=== PATIENT | female | born 1935 | race Caucasian/White ===

== ENCOUNTER → 2016-07-13 | Outpatient (CLI) | payer OTHER | LOC: FIMAGING 13:07 | DX: Z12.31 Encounter for screening mammogram for malignant neoplasm of breast (principal) | CPT/HCPCS: G0202 ==

== ENCOUNTER 2016-08-27 14:44 | Observation (INO) | payer OTHER ==
--- NOTE | 2016-08-27 16:02 | EDPHY ---
H & P Stated Complaint: Fall, unknown, no LOC, on Plavix Time Seen by Provider: 08/27/16 15:33 HPI/ROS: CHIEF COMPLAINT: Mechanical fall on Plavix, head trauma HISTORY OF PRESENT ILLNESS: The patient presents to the emergency department with complaints of a forehead hematoma. The patient tripped and fell at her house. She struck her left forehead. The patient denies loss of consciousness. She has a mild headache. She complains of mild left foot pain. The patient denies focal numbness, weakness, neck pain, chest pain, back pain or additional traumatic injury. The patient is on Plavix for prior history of stroke 10 years ago. REVIEW OF SYSTEMS: A comprehensive 10 point review of systems is otherwise negative aside from elements mentioned in the history of present illness. Source: Patient Exam Limitations: No limitations - Personal History Current Tetanus/Diphtheria Vaccine: Yes Current Tetanus Diphtheria and Acellular Pertussis (TDAP): Yes Tetanus Vaccine Date: September 2013 - Medical/Surgical History Hx Asthma: No Hx Chronic Respiratory Disease: No Hx Diabetes: No Hx Cardiac Disease: Yes Hx Renal Disease: No Hx Cirrhosis: No Hx Alcoholism: No Hx HIV/AIDS: No Hx Splenectomy or Spleen Trauma: No Other PMH: medical HTN, depression, anxiety, stroke, TIA hx,. surgery partial paradoidectomy - Social History Smoking Status: Former smoker - Physical Exam Exam: General Appearance: Alert, no distress Head: Large hematoma noted over left forehead Eyes: Pupils equal, round, reactive ENT, Mouth: No hemotympanum, no oral trauma Neck: Nontender, trachea midline Respiratory: No chest wall tender, subcutaneous air, lungs clear bilaterally Cardiovascular: Regular rate and rhythm Abdomen: Abdomen is soft and nontender, pelvis stable Skin: No lacerations, No abrasion Back: No midline T/L/S pain Extremities: Tenderness to palpation left foot Neurological: A&Ox3, normal motor function, normal sensory exam Constitutional: Initial Vital Signs Temperature (C) 36.4 C 08/27/16 15:00 Heart Rate 76 08/27/16 15:00 Respiratory Rate 18 08/27/16 15:00 Blood Pressure 137/62 H 08/27/16 15:00 O2 Sat (%) 93 08/27/16 15:00 O2 Delivery Mode Room Air Allergies/Adverse Reactions: No Known Allergies Allergy (Verified 08/27/16 15:03) Home Medications: Medication Instructions Recorded Aspirin [Aspirin 325 mg (*)] 325 mg PO DAILY 11/12/13 Atorvastatin Calcium [Lipitor 10 10 mg PO HS 11/12/13 mg (*)] Cholecalciferol Vit D3 [Vitamin D3 1,000 units PO DAILY 11/12/13 (*)] Metoprolol Tartrate [Lopressor 25 25 mg PO BID 11/12/13 mg (*)] PARoxetine HCL [Paxil 10mg (*)] 10 mg PO DAILY 11/12/13 PARoxetine HCL [Paxil 20mg (*)] 20 mg PO HS 11/12/13 Clopidogrel Bisulfate [Plavix (*)] 75 mg PO DAILY #30 tab 11/13/13 Zolpidem Tartrate [Ambien 5MG (*)] 5 mg PO HS 08/27/16 Medical Decision Making - Diagnostics Imaging: Imaging Impressions Head CT 08/27/16 15:33 Impression: 1. Stable mild to moderate atrophy. 2. 2 localized foci of subarachnoid hemorrhage over the left frontal lobe. 3. Stable moderate to extensive periventricular white matter disease. Differential diagnosis includes microvascular ischemic disease, post-infectious/ post-inflammatory sequela, atypical demyelinating disease, or migraine-related sequela. Small white matter lacunar infarcts may also have this appearance. 4. Moderate soft tissue swelling over the left orbital region without underlying fracture. These findings discussed by telephone with Dr. Larry Marti at 1604 hrs. Foot X-Ray 08/27/16 16:02 Impression: 1. Bone demineralization. 2. Compared to 05/21/2013, there has been development of avulsion fracture fragments over the dorsal distal talus and the proximal dorsal navicular. 3. Moderate hallux valgus configuration with bunion deformity. 4. Plantar calcaneal enthesophytosis. ED Course/Re-evaluation: The patient presents to the ED after mechanical fall with a large forehead hematoma. Given the fact she is on Plavix a CT scan was ordered which demonstrates a small intraparenchymal/subarachnoid hemorrhage in the left frontal lobe. The patient is noted to be neurologically intact. The patient has no cervical spine tenderness on exam. Consultation was made with Dr. Canales from Neurosurgery who evaluated the patient in the emergency department. He has requested the patient be given a unit of platelets. Consultation was made with Dr. Eric Francis from General surgery. The patient will be admitted to the step-down unit this evening for close neuro checks and repeat CT scan. Patient does have very superficial avulsions noted on her left foot x-ray consistent with a sprain of the foot. The patient can follow up with Orthopedics as an outpatient for any persistent pain in the foot past 7-10 days. Differential Diagnosis: Differential diagnosis considered includes intracranial hemorrhage, skull fracture, cervical spine fracture, foot fracture Critical Care Time: Critical care time exclusive of procedures and exclusive of the PA's time was 35 minutes, performed by myself, Nathanael Marti MD. - Data Points Laboratory Results: Laboratory Results 08/27/16 16:14 08/27/16 16:14 08/27/16 08/27/16 08/27/16 16:14 16:14 16:14 WBC 6.66 10^3/uL 10^3/uL (3.80-9.50) RBC 4.98 10^6/uL 10^6/uL (4.18-5.33) Hgb 15.1 g/dL g/dL (12.6-16.3) Hct 43.6 % % (38.0-47.0) MCV 87.6 fL fL (81.5-99.8) MCH 30.3 pg pg (27.9-34.1) MCHC 34.6 g/dL g/dL (32.4-36.7) RDW 13.3 % % (11.5-15.2) Plt Count 338 10^3/uL 10^3/uL (150-400) MPV 8.3 fL L fL (8.7-11.7) Neut % (Auto) 78.9 % H % (39.3-74.2) Lymph % (Auto) 12.3 % L % (15.0-45.0) Cotton % (Auto) 7.2 % % (4.5-13.0) Eos % (Auto) 0.6 % % (0.6-7.6) Baso % (Auto) 0.5 % % (0.3-1.7) Nucleat RBC Rel Count 0.0 % % (0.0-0.2) Absolute Neuts (auto) 5.26 10^3/uL 10^3/uL (1.70-6.50) Absolute Lymphs (auto) 0.82 10^3/uL L 10^3/uL (1.00-3.00) Absolute Monos (auto) 0.48 10^3/uL 10^3/uL (0.30-0.80) Absolute Eos (auto) 0.04 10^3/uL 10^3/uL (0.03-0.40) Absolute Basos (auto) 0.03 10^3/uL 10^3/uL (0.02-0.10) Absolute Nucleated RBC 0.00 10^3/uL 10^3/uL (0-0.01) Immature Gran % 0.5 % % (0.0-1.1) Immature Gran # 0.03 10^3/uL 10^3/uL (0.00-0.10) PT 14.0 SEC SEC (12.0-15.0) INR 1.09 (0.83-1.16) APTT 29.2 SEC SEC (23.0-38.0) Sodium 139 mEq/L mEq/L (134-144) Potassium 3.9 mEq/L mEq/L (3.5-5.2) Chloride 106 mEq/L mEq/L (97-110) Carbon Dioxide 24 mEq/l mEq/l (22-31) Anion Gap 9 mEq/L mEq/L (8-16) BUN 17 mg/dL mg/dL (7-23) Creatinine 1.3 mg/dL H mg/dL (0.6-1.0) Estimated GFR 40 Glucose 116 mg/dL H mg/dL (70-100) Calcium 9.6 mg/dL mg/dL (8.5-10.4) Departure - Departure Disposition: [facility] Inpatient Acute Clinical Impression: Intracranial hemorrhage, Facial contusion, Sprain of foot, left Condition: Fair
[2016-08-27 16:25] LABS: % IMMATURE GRANULYOCYTES 0.5 % (0.0-1.1); ABSOLUTE IMMATURE GRANULOCYTES 0.03 10^3/uL (0.00-0.10); ADD DIFF? NO; ADD MORPH? NO; ADD SCAN? NO; ATYPICAL LYMPHOCYTE FLAG 0 (0-99); FRAGMENT RBC FLAG 0 (0-99); HEMATOCRIT 43.6 % (38.0-47.0); HEMOGLOBIN 15.1 g/dL (12.6-16.3); LEFT SHIFT FLG 0 (0-99); LIPEMIA HEMOLYSIS FLAG 90 (0-99); MEAN CELL HEMOGLOBIN 30.3 pg (27.9-34.1); MEAN CELL HEMOGLOBIN CONCENTR. 34.6 g/dL (32.4-36.7); MEAN CELL VOLUME 87.6 fL (81.5-99.8); MEAN PLATELET VOLUME 8.3 fL (8.7-11.7); PLATELET CLUMPS FLAG 20 (0-99); PLATELET COUNT 338 10^3/uL (150-400); RED BLOOD CELL COUNT 4.98 10^6/uL (4.18-5.33); RED CELL DISTRIBUTION WIDTH 13.3 % (11.5-15.2)
[2016-08-27 16:40] LABS: ANION GAP 9 mEq/L (8-16); CALCIUM 9.6 mg/dL (8.5-10.4); CARBON DIOXIDE 24 mEq/l (22-31); CHLORIDE 106 mEq/L (97-110); CREATININE 1.3 mg/dL (0.6-1.0); GLOMERULAR FILTRATION RATE 40; GLUCOSE 116 mg/dL (70-100); POTASSIUM 3.9 mEq/L (3.5-5.2); SODIUM 139 mEq/L (134-144)
[2016-08-27] MEDS ORDERED: ACETAMINOPHEN 325 MG TAB PO PRN (16:47)
[2016-08-27] MEDS ORDERED: ONDANSETRON 4 MG/2 ML VIAL IVP PRN (16:47)
[2016-08-27] MEDS ORDERED: ONDANSETRON DISINTEGRATING 4 MG TAB PO PRN (16:47)
[2016-08-27 16:58] LABS: INR 1.09 (0.83-1.16)
[2016-08-27 16:59] LABS: APTT 29.2 SEC (23.0-38.0)
--- NOTE | 2016-08-27 17:21 | GHP ---
[f rep st] HISTORY AND PHYSICAL DATE OF ADMISSION: 08/27/2016 The patient was seen evaluated in [facility] emergency department at approximately 4 :25 p.m. on 08/27/2016. HISTORY OF PRESENT ILLNESS: The patient is a 81-year-old woman with a history of stroke and subsequ ent TIA, who was on aspirin and Plavix. She apparently had a fall when walking up some stairs today . She did not pass out or get dizzy. She apparently just missed a step and tripped. She did not h ave a loss of consciousness. She really did not have any symptoms or major head pain, but was getti ng some swelling above the left eye and, therefore, presented to the emergency department. Upon my evaluation, she really does not have any complaints. She does have some pain in the left ankle as w ell. She denies any neurologic symptoms such as visual problems, speech problems, numbness, weaknes s, neck pain, chest pain, abdominal pain, respiratory distress or any other symptoms. CT of the hea d reveals a tiny 3 mm left frontal hyperdensity in the subdural space, which appears to be a small s ubdural or possibly a cortical contusion. There is no mass effect or shift. REVIEW OF SYSTEMS: A 10-point review of systems is negative, other than described above in the HPI. PAST MEDICAL HISTORY: 1. Cardiac disease. 2. Hypertension. 3. Depression. 4. Anxiety. 5. Stroke. 6. TIA. 7. Parathyroidectomy. FAMILY HISTORY: Positive for vascular disease, but otherwise negative for any neurological problems . SOCIAL HISTORY: The patient is a former smoker. She drinks 2 alcoholic beverages (wine) daily. Yomaira meehan does not use any other drugs. 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 ALLERGIES: No known drug allergies. MEDICATIONS: 1. Aspirin. 2. Atorvastatin. 3. Calcium carbonate. 4. Vitamin D. 5. Metoprolol. 6. Paxil. 7. Zolpidem. 8. Clopidogrel. PHYSICAL EXAMINATION: VITAL SIGNS: Currently, she is afebrile with normal and stable vital signs. The temperature is 36.4, heart rate 76, respiratory rate 18, blood pressure is 137/62, sats are 93% on room air. GENERAL: She is awake, alert and oriented x3. NEUROLOGIC: The pupils are equal, ro und, reactive to light. She does have ecchymosis and swelling over the left eye, but otherwise her vision is intact. Face is symmetric. Tongue is midline. Palate is symmetric. She has full 5/5 st rength in all muscle groups of the upper and lower limbs. There is no pronator drift. Her sensatio n is normal. Her reflexes are normal. She has no dysmetria or dysdiadochokinesia. CHEST: Clear t o auscultation bilaterally. HEART: Regular rate and rhythm. No rubs, murmurs or gallops. ABDOMEN : Soft, nontender, nondistended. Active bowel sounds in all 4 quadrants. IMAGING REVIEW: See HPI. LABORATORY REVIEW: The white count is 6.6, hemoglobin 15.1, hematocrit 43.6, platelet count is 338, 000. PT and INR are pending. Her chemistry is also pending at this time. ASSESSMENT AND PLAN: The patient is a 81-year-old woman who had a mechanical fall today. She has e cchymosis over the left eye and a small what looks like a subdural bleed or cortical contusion in th e left frontal region. There is no mass effect or midline shift or any need for intervention. Give n the fact that she is on aspirin and Plavix, I will plan to repeat her scan tomorrow morning. At t his time, I do not really think, given the small nature of this, that there is any reason to give he r platelets, given the transfusion risk, but we will monitor in the step-down observation status linda rnight. She does tell me that she has a current urinary tract infection, for which she was supposed to start Cipro today; so we will start that here in the hospital. We will plan for discharge tomor row morning, and she will need followup closely with a neurologist to determine if she needs to be b ack on Plavix again and to stratify her stroke risk. I explained all this to her and her . They are in agreement, and we will proceed as described. /[id number]/MODL
--- NOTE | 2016-08-27 18:11 | GHP ---
[f rep st] PREOP HISTORY AND PHYSICAL DATE OF ADMISSION: 08/27/2016 ADMITTING DIAGNOSES: 1. Fall. 2. Left frontal subarachnoid hemorrhage/small cortical contusion. 3. Left ankle sprain HISTORY: She is a 81-year-old, white female, who was going up stairs in clogs. She tripped and fell. It is unclear how many stairs she fell down. She did land on carpet. It is unclear if she hit her head on shelving on one-sided the steps or the post and railing on the other side. immediately found her. She was awake and alert. There does not appear to have been a loss of consciousness but she is amnestic for the event. She feels she just missed a step and tripped. She is on Plavix and aspirin. She suffered a cerebrovascular accident in November of 2008. At that time, a carotid ultrasound showed noncalcified plaque in the left carotid bulb and noncalcified plaque in the left internal carotid artery without evidence of stenosis. She subsequently had a BELIA/stroke in October of 2013. That showed an equivocal narrowing the right vertebral artery at the level of C2. The presence of a dental amalgam may have complicated that reading. She had an MRI which has shown, at that time, an old lacunar infarct in left basal ganglia. In 2013 she had an acute right lacunar infarct in the right internal capsule. Atrophy was noted. She has been on an 81 mg aspirin but recently she feels she was taking a 325 because she purchased the wrong aspirin. She also takes Plavix 75 mg a day. She takes Lipitor, metoprolol and vitamin D. She was started on 1 antibiotic last week. 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 Casanova, and she was changed to Cipro today but has not yet started that. Prior surgeries have included removal of parathyroid adenoma at [facility] 5 years ago. She underwent a breast reduction, again at [facility] in March of 2016. She has had 3 vaginal births and a tonsillectomy. There is no history of rheumatic fever, tuberculosis or hepatitis. She thinks she may have had a transfusion with one of her surgeries but is unclear. SOCIAL HISTORY: She has recently been in [facility] and returned home 1 week ago. She did suffer from traveler's diarrhea. She has had no prior histories of concussions or seizures. She wears lenses for visual correction. . She has cataracts which are not ready for extraction , the right is worse than the left. Her last mammogram was within the year. She has not had a recent Pap smear. There are no limits on her activities. No history of steroid use. She does have hypertension. She does did smoke from ages [age] at 1 pack per month. She does drink 2 glasses of wine, 1 red and 1 white, a day. PHYSICAL EXAMINATION: GENERAL: She is awake, alert. GCS is 15. She is oriented to person, place, and time. She is able to repeat her home telephone number in inverted order. She is able to do serial 7s. Cerebellar function is intact to finger-nose, heel-man testing. There is no focal lateralizing sensory or motor findings. HEENT: Pupils are 3 mm and reactive. She has a contusion over her left eyebrow. There is no Paris sign. No raccoon eyes. She has normal dental occlusion. Cranial nerves are intact. NECK: Nontender. There are no carotid bruits appreciated. No thyroid enlargement. BACK: Unremarkable. CHEST: Stable to AP and lateral compression. CARDIAC: Shows S1 , S2 to be normal. Normal split of S2. I do not appreciate any murmurs, rubs, or gallops. ABDOMEN: Soft, nontender, with normoactive bowel sounds. Spine is palpably normal. Her pelvis is stable to AP and lateral compression. EXTREMITIES: Upper and lower extremities are ranged and found to be unremarkable. She certainly has ecchymosis over the left forefoot. IMAGING: An x-ray of the left forefoot shows tiny avulsion fracture of the dorsal distal talus and the proximal dorsal navicular. LABORATORIES: Unremarkable. Dr. Canales's note indicates that he does not feel that it will be helpful to give her platelets at this time and would rather follow her clinically. She will be admitted to the ICU for observation. /[id number]/MODL MTDD
[2016-08-27] MEDS: CIPROFLOXACIN 500 MG TAB PO SCH (20:41)
[2016-08-27] MEDS: METOPROLOL TARTRATE 25 MG TAB PO SCH (20:41)
[2016-08-27] MEDS ORDERED: ZOLPIDEM TARTRATE 5 MG TAB PO SCH (21:00)
[2016-08-27] MEDS ORDERED: ATORVASTATIN CALCIUM 10 MG TAB PO SCH (21:00)
--- NOTE | 2016-08-28 07:44 | NEUSURGPN ---
Assessment/Plan: 81y/o female with small left frontal SDH -Stable on CT this am -PT/OT -Okay to dispo home per neurosurgery when cleared by trauma. -Hold Plavix until follow up with neurology. Recommend out patient neurology follow up in 1 week -Seen by Dr. Canales and myself. Please notify NS with any change in neuro/motor exam Subjective: Denies any headache, nausea, dizziness. Objective: NAD A&Ox3 left eyelid edema and ecchymosis. PERRLA, CN II-XII grossly intact. MAEx4 5/ and equal BUE and BLE - Physician Patient Seen by : [facility] Physical Exam - Vitals, I&O, Labs I and O 08/27/16 08/28/16 08/29/16 05:59 05:59 05:59 Intake Total 400 Balance 400 Weight 60.4 kg Intake: Oral (ml) 400 Other: Number of Voids Toilet 1 Vital Signs Temp Pulse Resp BP Pulse Ox 36.7 C 68 17 108/64 95 08/28/16 04:00 08/28/16 04:00 08/28/16 04:00 08/28/16 04:00 08/28/16 04:00 ICD10 Worksheet Patient Problems: Problems Problem Status Onset Facial contusion Acute Intracranial hemorrhage Acute Sprain of foot, left Acute Stroke Acute 11/12/13
[2016-08-28 08:09] VITALS: O2SAT 94
[2016-08-28] MEDS ORDERED: CHOLECALCIFEROL VIT D3 1,000 UNITS TAB PO SCH (09:00)
[2016-08-28] MEDS ORDERED: FLUoxetine 20 MG CAP PO SCH (09:00)
[2016-08-28] MEDS: CIPROFLOXACIN 500 MG TAB PO SCH (09:17)
[2016-08-28] MEDS: METOPROLOL TARTRATE 25 MG TAB PO SCH (09:18)
[2016-08-28] MEDS ORDERED: CIPROFLOXACIN 500 MG TAB PO SCH (10:00)
--- NOTE | 2016-08-28 10:19 | TRAUMAPN ---
Assessment/Plan: 81yo F s/p mech fall, anticoagulated c L frontal SAH and cortical contusion - Neuro: Imaging this AM is stable. Completely neuro intact. Cog eval prior to d /c - Pulm: SHERRON, no crepitus. Breathing appropriately - CV: HDS - Abd: soft, NTTP. Tolerating diet - Neph: Voiding, Cr elevated (chronically) - ID: On Cipro for outpatient UTI Dx, will decrease dose to daily - Dispo: PT/OT clearance in addition to cog eval. Then d/c home Subjective: Doing well Objective: Vital Signs Temp Pulse Resp BP Pulse Ox 37.0 C 63 16 112/69 94 08/28/16 08:00 08/28/16 08:00 08/28/16 08:00 08/28/16 08:00 08/28/16 08:00 08/27/16 08/28/16 08/29/16 05:59 05:59 05:59 Intake Total 400 Balance 400 PT 14.0 SEC (12.0-15.0) 08/27/16 16:14 INR 1.09 (0.83-1.16) 08/27/16 16:14 - C-Spine Clearance Cervical Spine Cleared: Yes Physical Exam - Physical Exam General Appearance: WD/WN, alert, no apparent distress EENT: PERRL/EOMI Neck: non-tender, full range of motion Respiratory: chest non-tender, lungs clear Cardiac/Chest: normal peripheral pulses Abdomen: normal bowel sounds, non-tender, soft Skin: normal color, warm/dry Neuro/Psych: no motor/sensory deficits, alert, normal mood/affect, oriented x 3
[2016-08-28 11:37] VITALS: BP 100/60; PULSE 67; RESP 17; TEMP 97.8
--- NOTE | 2016-08-28 13:18 | GDS ---
[f rep st] DISCHARGE SUMMARY DISCHARGE DIAGNOSES: 1. Fall. 2. Left frontal subarachnoid hemorrhage with small cortical contusion. 3. Left ankle sprain. HOSPITAL COURSE: This is a 81-year-old female, who sustained a mechanical fall. She was subsequent ly evaluated in the [facility] by the trauma service and neurosurgeons. [facility]. She initially had the above diagnoses on CT scan imaging . The following morning, her CT scan was stable. She was completely neuro intact and appropriate. Her diet was advanced and well tolerated. Her pain was well controlled. She was subsequently disc harged home in stable condition. DISPOSITION: Home. FOLLOWUP: She will follow up with Neurology in 1-2 weeks. Will make the decision to restart her an ticoagulants. She should follow up with her primary care provider in the same timeframe for a allyson al post hospital stay visit. DISCHARGE MEDICATIONS: No new. /[id number]/MODL
== END 2016-08-28 14:19 | disposition home or self-care (01) ==
LOC: INTOOBSV 16:15 → F2N 17:16
PROVIDERS: ADMIT Surgery; ATTEND Surgery
DX: S06.6X0A Traumatic subarachnoid hemorrhage without loss of consciousness, initial encounter (principal); S93.602A Unspecified sprain of left foot, initial encounter; I10 Essential (primary) hypertension; W01.10XA Fall on same level from slipping, tripping and stumbling with subsequent striking against unspecified object, initial encounter; Y92.019 Unspecified place in single-family (private) house as the place of occurrence of the external cause
CPT/HCPCS: 70450; 73630; 92523; 97161; G0378; G8978; G8979; G8980; G9165; G9166; G9167

== ENCOUNTER → 2016-09-01 | Outpatient (CLI) | payer OTHER | LOC: BMCIMAGING 14:54 | PROVIDERS: ATTEND Family Medicine | DX: R05 Cough (principal) ==

== ENCOUNTER → 2016-09-04 | Outpatient (CLI) | payer OTHER | LOC: FIMAGING 11:02 | PROVIDERS: ATTEND Internal Medicine | DX: Z03.89 Encounter for observation for other suspected diseases and conditions ruled out (principal); I62.00 Nontraumatic subdural hemorrhage, unspecified ==

== ENCOUNTER → 2016-09-24 | Outpatient (CLI) | payer OTHER | LOC: BMCIMAGING 14:04 | PROVIDERS: ATTEND Podiatrist Foot & Ankle Surgery | DX: S92.252D Displaced fracture of navicular [scaphoid] of left foot, subsequent encounter for fracture with routine healing (principal) ==

== ENCOUNTER → 2018-03-14 | Outpatient (CLI) | payer OTHER | LOC: BMCIMAGING 10:30 | PROVIDERS: ATTEND Family Medicine | DX: R05 Cough (principal); R50.9 Fever, unspecified ==